=== PATIENT | male | born 1965 | race Hispanic/Latino ===

== ENCOUNTER 2017-07-21 15:33 | Emergency (ER) | payer SELFPAY ==
[2017-07-21] MEDS ORDERED: TORADOL IM ONE (17:55)
--- NOTE | 2017-07-21 18:02 | Emergency Department Report ---
Alycia Doc - Documentation Documentation: Patient is a 52-year-old who was working on a 12 foot ladder yesterday and the ladder fell. Patient states the ladder was an incline and slid downward. The patient states he did not hit his head was no loss consciousnessbut he is having quite a bit of pain in the neck. Patient states he went to sleep over the [place] feeling better but he did not seek came in for evaluation. Patient denies any inability to move his arms and legs. Patient states aching pain generalized neck is a 7 out of 10 in severity. Patient also states that the left hamstring area feels tight also. Patient will be placed in a c-collar and will have x-rays of his C-spine
--- NOTE | 2017-07-21 19:32 | XRay Report ---
FINAL REPORT EXAM: XR SPINE CERVICAL 2-3V HISTORY: fall from ladder, pain . Patient fell 12 feet down the ladder yesterday TECHNIQUE: AP, lateral, and odontoid views of the cervical spine PRIORS: None. FINDINGS: The vertebral body heights and disc spaces are well maintained. The alignment is normal. No prevertebral soft tissue swelling is seen. The odontoid is intact. Moderate disc space narrowing to at C4-C5 and C6-C7 is seen with spurring anteriorly and posteriorly at those levels. IMPRESSION: No acute abnormality in the cervical spine. Degenerative changes at C4-C5 and C6-C7.
--- NOTE | 2017-07-21 19:44 | Emergency Department Report ---
ED Fall HPI - General Chief Complaint: Fall Stated Complaint: FALL FROM LADDER Time Seen by Provider: 07/21/17 17:37 Source: patient Mode of arrival: Ambulatory - History of Present Illness Initial Comments: 52-year-old male past medical history hypertension presents with complaint of headache neck pain and neck pain status post fall from ladder more than 12 foot yesterday. Patient states he was dazed for several minutes does not discretely remember a loss of consciousness. Patient is currently awake alert and oriented 3 denies any chest or abdominal pain primarily complaining of pain at the base of his head and neck and upper back. Also complains of some lower back aching. Denies any paresthesias. Patient is ambulatory and moving all 4 extremities spontaneously. Denies being on any blood thinners. Onset/Timin -: days(s) Fall From: other (fall off ladder) Place Fall Occurred: work Loss of Consciousness: unsure Prolonged Down Time?: no Symptoms Prior to Fall: lightheadedness Severity: moderate Severity scale (0 -10): 7 Quality: crushing - Related Data Previous Rx's Medication Instructions Recorded Last Taken Type HYDROcodone/APAP 5-325 [[place] 1 each PO Q6HR PRN #10 tablet 07/21/17 Unknown Rx 5/325] Ibuprofen [Motrin] 800 mg PO Q8HR PRN #20 tablet 07/21/17 Unknown Rx Allergies Allergy/AdvReac Type Severity Reaction Status Date / Time No Known Allergies Allergy Unverified 07/21/17 15:39 ED Review of Systems ROS: Stated complaint: FALL FROM LADDER Other details as noted in HPI Constitutional: denies: chills, fever Eyes: denies: eye pain, eye discharge, vision change ENT: denies: ear pain, throat pain Respiratory: denies: cough, shortness of breath, wheezing Cardiovascular: denies: chest pain, palpitations Endocrine: no symptoms reported Gastrointestinal: denies: abdominal pain, nausea, diarrhea Genitourinary: denies: urgency, dysuria Musculoskeletal: denies: back pain, joint swelling, arthralgia Skin: denies: rash, lesions Neurological: denies: headache, weakness, paresthesias Psychiatric: denies: anxiety, depression Hematological/Lymphatic: denies: easy bleeding, easy bruising ED Past Medical Hx - Past Medical History Previous Medical History?: No - Surgical History Additional Surgical History: L5 disc removal - Social History Smoking Status: Never Smoker Substance Use Type: None - Medications Home Medications: Home Medications Medication Instructions Recorded Confirmed Last Taken Type HYDROcodone/APAP 5-325 [[place]wood 1 each PO Q6HR PRN #10 tablet 07/21/17 Unknown Rx 5/325] Ibuprofen [Motrin] 800 mg PO Q8HR PRN #20 tablet 07/21/17 Unknown Rx ED Physical Exam - General Limitations: No Limitations General appearance: alert, in no apparent distress - Head Head exam: Present: atraumatic, normocephalic - Eye Eye exam: Present: normal appearance - ENT ENT exam: Present: mucous membranes moist - Neck Neck exam: Present: normal inspection - Respiratory Respiratory exam: Present: normal lung sounds bilaterally. Absent: respiratory distress - Cardiovascular Cardiovascular Exam: Present: regular rate, normal rhythm. Absent: systolic murmur, diastolic murmur, rubs, gallop - GI/Abdominal GI/Abdominal exam: Present: soft, normal bowel sounds - Rectal Rectal exam: Present: deferred - Extremities Exam Extremities exam: Present: normal inspection - Back Exam Back exam: Present: normal inspection - Neurological Exam Neurological exam: Present: alert, oriented X3, CN II-XII intact, normal gait - Psychiatric Psychiatric exam: Present: normal affect, normal mood - Skin Skin exam: Present: warm, dry, intact, normal color. Absent: rash ED Course Vital Signs 07/21/17 07/21/17 07/21/17 15:39 18:08 21:47 Temperature 98.3 F 98.6 F Pulse Rate 87 72 Respiratory 17 18 18 Rate Blood Pressure 139/86 Blood Pressure 136/76 [Left] O2 Sat by Pulse 98 99 Oximetry ED Medical Decision Making - Medical Decision Making A/P: Fall injury 1-CT head unremarkable, x-rays show no fractures, degenerative changes. No neurological deficits at this time. Strength 5 out of 5 bilateral upper and lower extremities with no paresthesias and no sensory loss. Concussion precautions 2-short course of [place] and Motrin when necessary 3-follow-up with primary care and outpatient orthopedics Critical care attestation.: If time is entered above; I have spent that time in minutes in the direct care of this critically ill patient, excluding procedure time. ED Disposition Clinical Impression: Neck pain Fall with no significant injury Qualifiers: Encounter type: initial encounter Qualified Code(s): W19.XXXA - Unspecified fall, initial encounter Disposition: - TO HOME OR SELFCARE Is pt being admited?: No Does the pt Need Aspirin: No Condition: Stable Instructions: Concussion (ED), Minor Head Injury (ED), Back Pain (ED), Degenerative Disc Disease (ED) Prescriptions: HYDROcodone/APAP 5-325 [[place] 5/325] 1 each PO Q6HR PRN #10 tablet PRN Reason: Pain Ibuprofen [Motrin] 800 mg PO Q8HR PRN #20 tablet PRN Reason: Pain Referrals: ERNESTINA THAYER MD [Staff Physician] - 3-[address] [facility] [Provider Group] - 3-5 Days GIUSEPPE MADSEN MD [Staff Physician] - 3-5 Days Forms: Accompanied Note, Work/School Release Form(ED) Time of Disposition: 21:34
[2017-07-21] MEDS ORDERED: PERCOCET 5/325 PO ONE (19:57)
--- NOTE | 2017-07-21 20:54 | Cat Scan Report ---
FINAL REPORT EXAM: CT HEAD/BRAIN WO CON HISTORY: headache, fall from more than 12 foot TECHNIQUE: Standard unenhanced CT of the head at 5.0 millimeter axial increments. PRIORS: None. FINDINGS: The ventricular system is normal in size and configuration. There is no evidence for parenchymal volume loss. There is no evidence for mass lesion, mass effect, midline shift, acute intracranial hemorrhage, or acute ischemia/ infarction. No evidence for acute skull fracture is seen. No abnormality in the overlying scalp soft tissues is seen. Visualized paranasal sinuses are clear. IMPRESSION: Negative CT of the head. No acute intracranial process noted.
[2017-07-21 21:49] VITALS: BP 136/76
--- NOTE | 2017-07-21 22:06 | XRay Report ---
FINAL REPORT EXAM: XR SPINE LUMBOSACRAL 2-3V HISTORY: s/p fall from 10+ feet back pain TECHNIQUE: AP, lateral and coned-down views of the lumbar spine PRIORS: None. FINDINGS: The vertebral body heights are well maintained. Moderate disc space narrowing L5-S1 is seen. The alignment is normal. No evidence for spondylolysis or spondylolisthesis is seen. Pedicles are intact bilaterally at all levels. The paraspinal soft tissues are unremarkable. IMPRESSION: No acute bony abnormality. Disc space narrowing L5-S1.
--- NOTE | 2017-07-21 22:07 | XRay Report ---
FINAL REPORT EXAM: XR SPINE THORACIC 3V HISTORY: throacic back pain TECHNIQUE: AP, lateral and swimmer's views of the thoracic spine. PRIORS: None. FINDINGS: The vertebral body heights and disc spaces are well maintained. The alignment is normal. Pedicles are intact bilaterally at all levels. The paraspinal soft tissues are unremarkable. IMPRESSION: Normal thoracic spine.
== END 2017-07-21 21:47 | disposition home or self-care (01) ==
LOC: ED 15:33
DX: M54.2 Cervicalgia (principal); W11.XXXA Fall on and from ladder, initial encounter; Y93.89 Activity, other specified; Y92.89 Other specified places as the place of occurrence of the external cause; Y99.8 Other external cause status
CPT/HCPCS: 70450; 72040; 72072; 72100; 96372; 99284; J1885